=== PATIENT | female | born 1980 | race Caucasian/White ===

== ENCOUNTER 2016-11-13 19:04 | Emergency (ER) | payer SELFPAY ==
[~2016-11-13] VITALS: Ht 165.1 cm; Wt 81.5 kg
[2016-11-13 19:05] VITALS: BP 138/82
== END 2016-11-13 19:36 | disposition home or self-care (01) ==
LOC: ED 19:20
DX: B02.9 Zoster without complications (principal); R21 Rash and other nonspecific skin eruption; Z90.710 Acquired absence of both cervix and uterus
CPT/HCPCS: 99283

== ENCOUNTER 2017-08-03 01:39 | Emergency (ER) | payer OTHER ==
[~2017-08-03] VITALS: Ht 165.1 cm; Wt 85.4 kg
[2017-08-03 01:40] VITALS: BP 155/92
[2017-08-03] MEDS ORDERED: HYDROcodone/APAP 5/325 TABLET ONE (02:17)
[2017-08-03] MEDS ORDERED: HYDROcodone/APAP 5/325 TABLET PO ONE (02:30)
== END 2017-08-03 02:50 | disposition home or self-care (01) ==
LOC: ED 02:30
DX: K04.7 Periapical abscess without sinus (principal)
CPT/HCPCS: 41800; 99283